=== PATIENT | female | born 1980 | race Caucasian/White ===

== ENCOUNTER 2025-06-29 21:04 | Emergency (ER) | payer OTHER ==
[~2025-06-29] VITALS: Ht 162.6 cm; Wt 57.6 kg
[2025-06-29 21:15] VITALS: BP 132/74; O2SAT 98
[2025-06-29] MEDS ORDERED: NAPROXEN 500 MG TABLET ONE (21:41)
[2025-06-29] MEDS ORDERED: ACETAMINOPHEN 500 MG TABLET ONE (21:41)
[2025-06-29] MEDS ORDERED: DIAZEPAM 5 MG TABLET ONE (21:42)
[2025-06-29] MEDS: ACETAMINOPHEN 500 MG TABLET PO ONE (21:51)
[2025-06-29] MEDS: NAPROXEN 500 MG TABLET PO ONE (21:51)
[2025-06-29] MEDS: DIAZEPAM 2 MG TABLET PO ONE (21:52)
[2025-06-29 21:58] LABS: *BILIRUBIN,URIN NEGATIVE (NEGATIVE); *BLOOD, URINE NEGATIVE (NEGATIVE); *CLARITY,URINE CLOUDY (CLEAR); *COLOR,URINE YELLOW (YELLOW); *KETONES,URINE NEGATIVE (NEGATIVE); *PROTEIN,URINE NEGATIVE (NEGATIVE); *UROBILINOGEN,URINE 0.2 E.U./dl (NORMAL); LEUKOCYTE ESTERASE ,URINE NEGATIVE (NEGATIVE); NITRITE, URINE NEGATIVE (NEGATIVE); UGLUCOSE NEGATIVE (NEGATIVE)
[2025-06-29 21:59] LABS: *URINE HCG, QUAL NEGATIVE (NEGATIVE)
[2025-06-29 22:04] LABS: SQUAMOUS EPITHELIAL CELL,UR MODERATE /HPF (NONE SEEN); URINE AMORPHOUS URATE MANY /HPF
[2025-06-29] MEDS ORDERED: IBUP-1955 PO (22:46)
[2025-06-29] MEDS ORDERED: DIAZ5TAB PO (22:46)
[2025-06-29] MEDS ORDERED: ACET-3102 PO (22:46)
[2025-06-29] MEDS ORDERED: LIDO1ADH82 TP (22:49)
== END 2025-06-29 22:55 | disposition home or self-care (01) ==
LOC: ER 21:24
DX: M54.50 Low back pain, unspecified (principal); M25.561 Pain in right knee; M47.819 Spondylosis without myelopathy or radiculopathy, site unspecified; Z88.0 Allergy status to penicillin; Z79.899 Other long term (current) drug therapy
CPT/HCPCS: 72110; 84703; 87086; A4606; A4663; A9150